=== PATIENT | male | born 1965 | race African-American/Black ===

== ENCOUNTER → 2016-09-15 | Outpatient (REF) ==
--- NOTE | 2016-09-15 11:21 | DI ---
EXAM: Two views of the chest. History: Physical exam screening chest radiograph Comparison: Chest radiograph 07/26/2014 Findings: Heart size is normal. No focal consolidation. No appreciable pleural fluid and no pneum othorax. No acute osseous abnormalities. Impression: No acute cardiopulmonary process. No change compared to the prior study.
== END ==
LOC: RAD 10:58
DX: Z02.89 Encounter for other administrative examinations (principal)

== ENCOUNTER → 2017-09-07 | Outpatient (REF) ==
--- NOTE | 2017-09-07 15:47 | DI ---
EXAM: CHEST FRONTAL AND LATERAL VIEWS HISTORY: Routine screening, Artemio. COMPARISON: 09/15/2016 FINDINGS: Heart size and mediastinal contour remain within normal limits. No acute infiltrates. Normal vascularity with no pleural fluid or pneumothorax. The bony thorax has no acute finding. IMPRESSION: No suspicious pulmonary opacities or acute disease. No noticeable change since prior st udy.
== END ==
LOC: RAD 15:30
DX: Z02.89 Encounter for other administrative examinations (principal)